=== PATIENT | male | born 1975 | race African-American/Black ===

== ENCOUNTER 2018-09-23 04:23 | Emergency (ER) | payer OTHER ==
[2018-09-23 04:31] VITALS: TEMP 97.4
[2018-09-23] MEDS ORDERED: KETOROLAC TROMETHAMINE 30 MG/ML SOL IV ONE (04:59)
[2018-09-23] MEDS ORDERED: AMOXIL/CLAVULANATE 400/5 ML PDR PO ONE (04:59)
[2018-09-23] MEDS ORDERED: ACETAMI/HYDROCO 325/10 TAB PO ONE (04:59)
[2018-09-23] MEDS ORDERED: HYDRALAZINE HYDROCHLORIDE 20 MG/ML SOL IV SCH ×2 (05:00→06:45)
[2018-09-23] MEDS ORDERED: APAP/HYDROCODONE 1 EACH TABLET ONE (05:04)
[2018-09-23] MEDS ORDERED: HYDRALAZINE HYDROCHLORIDE 20 MG/ML SOL ONE ×2 (05:04→06:55)
[2018-09-23] MEDS ORDERED: KETOROLAC TROMETHAMINE 30 MG/ML SOL ONE (05:04)
[2018-09-23] MEDS ORDERED: AUGMENTIN(FRIDGE) 400 MG/5 ML ONE (05:05)
[2018-09-23] MEDS ORDERED: HYDROMORPHONE 1 MG/ML SYRINGE IV ONE (07:14)
[2018-09-23] MEDS ORDERED: HYDROMORPHONE 1 MG/ML SYRINGE ONE (07:15)
[2018-09-23 07:42] LABS: BASOPHILS % (AUTO) 1 % (0-3); EOSINOPHILS % (AUTO) 1 % (0-9); HEMATOCRIT 41 % (39-53); HEMOGLOBIN 13.1 gm/dl (13.5-17.7); LYMPHOCYTES % (AUTO) 30.8 % (10-50); MEAN CORPUSCULAR HEMOGLOBIN 28.8 pg (27.0-32.0); MEAN CORPUSCULAR HGB CONC 32.1 gm/dl (32.0-36.0); MEAN CORPUSCULAR VOLUME 90 fL (80-100); MONOCYTES % (AUTO) 8.3 % (0-12); NEUTROPHILS % (AUTO) 59.3 % (37-80)
[2018-09-23 07:54] LABS: CALCIUM 8.8 mg/dl (8.5-10.1); CARBON DIOXIDE 28.6 mEq/L (21-32); CREATININE 1.15 mg/dl (0.80-1.30)
[2018-09-23] MEDS ORDERED: NOVOLOG FLEXPEN SC ONE (08:10)
[2018-09-23] MEDS ORDERED: LIDOCAINE 2% W/ EPI MPF 20 ML SOL ONE (08:15)
[2018-09-23] MEDS ORDERED: INSULIN HUMAN REGULAR 100 U/ML SOL ONE (08:15)
[2018-09-23] MEDS ORDERED: INSULIN HUMAN REGULAR 100 U/ML SOL SC ONE ×2 (08:19→09:01)
[2018-09-23] MEDS ORDERED: LIDOCAINE 2% W/ EPI MPF 20 ML SOL SC ONE (08:26)
[2018-09-23 09:20] LABS: ESTIMATED AVE GLU > 355 mg/dl (91-125)
[2018-09-23 10:04] VITALS: PULSE 72; RESP 16; O2SAT 96
[2018-09-23 10:09] VITALS: BP 159/85
== END 2018-09-23 10:55 | disposition home or self-care (01) | DRG 159 ==
LOC: EDBD 04:23 → ED 04:23
DX: K08.89 Other specified disorders of teeth and supporting structures (principal); I10 Essential (primary) hypertension; E11.65 Type 2 diabetes mellitus with hyperglycemia
CPT/HCPCS: 36415; 80048; 82962; 83036; 85025; 96372; 96374; 96375; 99282; 99283; 99285; J0360; J1815; J1885; A9270-GY; J1170

== ENCOUNTER 2018-09-23 13:46 | Emergency (ER) | payer OTHER ==
[2018-09-23 13:59] VITALS: RESP 18; TEMP 97.5
[2018-09-23 15:01] VITALS: PULSE 69
[2018-09-23 16:35] VITALS: BP 188/116; O2SAT 98
== END 2018-09-23 16:30 | disposition home or self-care (01) | DRG 159 ==
LOC: ED 13:46
DX: K08.89 Other specified disorders of teeth and supporting structures (principal)
CPT/HCPCS: 82962; 99282